=== PATIENT | male | born 1960 ===

== ENCOUNTER 2024-03-23 10:31 | Outpatient (CLI) | payer SELFPAY ==
--- NOTE | 2024-03-23 10:30 | RT.EKG_ITS ---
APPROVED REPORT Exam: Resting ECG Reason for Exam: chest pain Patient Location: O HR:89 bpm ECG Measurements Heart Rate 89 AXIS KS 113 P 68 QRSd 137 QRS 15 QT 372 T 50 QTc 453 Conclusion Sinus rhythm...normal P axis, V-rate 50- 99 LVH Baseline wander in lead(s) II,aVR,aVF,V1,V2
== END 2024-03-23 10:32 | disposition home or self-care (01) ==
LOC: DI.CARD 10:33
PROVIDERS: Visit Provider Internal Medicine Cardiovascular Disease
DX: R07.9 Chest pain, unspecified (principal)
CPT/HCPCS: 93010

== ENCOUNTER 2024-03-23 13:34 | Outpatient (CLI) | payer MEDICAID, SELFPAY ==
[2024-03-23 11:56] LABS: HCT 43.7 % (40.0-50.0); HGB 14.9 g/dL (13.5-17.5); MCH 29.8 pg (27.0-33.0); MCHC 34.1 % (32.0-36.0); MCV 87 fL (80-95); Platelet Count 251 10^3/uL (130-400); RDW 12.6 % (11.8-14.1); RDW-SD 40.4 fL; WBC 10.83 10^3/uL (4.4-10.8)
[2024-03-23 12:10] LABS: PTT Activated 25.6 sec (23.6-32.8); Prothrombin Time 10.2 sec (9.1-11.1)
[2024-03-23 12:17] LABS: Anion Gap 8.5 mmol/L (3-11); BUN 17 mg/dL (7-18); CO2 30.5 mmol/L (21.0-32.0); CREATININE 1.1 mg/dL (0.70-1.30); Chloride 104 mmol/L (98-107); Estimated GFR 76.37 (mL/min/1.73m2); Glucose 111 mg/dL (74-106); Potassium 4.6 mmol/L (3.5-5.1); Sodium 143 mmol/L (136-145)
== END 2024-03-23 13:35 | disposition home or self-care (01) ==
LOC: LBO 13:34
PROVIDERS: Visit Provider Internal Medicine Cardiovascular Disease
DX: I20.0 Unstable angina (principal)
CPT/HCPCS: 36415; 80048; 85027; 85610; 85730